=== PATIENT | female | born 1995 ===

== ENCOUNTER 2022-09-28 08:32 | Outpatient (OUT) | payer OTHER, SELFPAY ==
--- NOTE | 2022-09-28 | US_ITS ---
[address] [address] Patient Name: JEFF LANCE MRN: [id number] date: 1995 Sex: F Assigned Patient Location: US Current Patient Location: US Accession/Order Number: [id number] Exam Date: 09/28/2022 08:35 Report Date: 09/28/2022 17:27 At the request of: EMILIA PEREZ Procedure: US OB incomplete anatomy EXAM: US OB incomplete anatomy HISTORY: SUBVISUALIZED OUTFLOW TRACTS AND 3 VESSEL CORD COMPARISON: 08/20/2022 TECHNIQUE: Transabdominal FINDINGS: The umbilical arteries: 2 position: Breech presentation, longitudinal lie Heart rate: 144 bpm Normally observed anatomy: RVOT, LVOT, three-vessel cord IMPRESSION: Normal observed anatomy Electronically authenticated by: BRITTANY GO Date: 09/28/2022 17:27
== END 2022-09-28 08:33 ==
LOC: US 08:32
PROVIDERS: PCP Family Medicine; Visit Provider Obstetrics & Gynecology
DX: Z36.2 Encounter for other antenatal screening follow-up (principal)
CPT/HCPCS: 76815

== ENCOUNTER 2022-11-17 14:37 | Outpatient (OUT) | payer OTHER, SELFPAY ==
--- NOTE | 2022-11-17 14:40 | US_ITS ---
The [address] [address] Patient Name: JEFF LANCE MRN: [id number] date: 1995 Sex: F Assigned Patient Location: Current Patient Location: Accession/Order Number: [id number] Exam Date: 11/17/2022 14:41 Report Date: 11/17/2022 22:10 At the request of: EMILIA PEREZ Procedure: US OB growth EXAMINATION: US OB growth HISTORY: SIZE INCONSISTENT WITH DATES COMPARISON: No relevant comparison available. FINDINGS: Heart Rate: 140.0 bpm Number: 1.0 Position: CEPHALIC Amniotic Fluid Volume: 15.1 cm Maximum Vertical Pocket: 6.0 cm BIOMETRY: BPD: 8.6 cm cm; 34 weeks 5 days; 89% HC: 30.9 cmcm; 34 weeks 4 days; 53% AC: 30.2 cm cm; 34 weeks 1 days; 82% FL: 6.6 cm cm; 33 weeks 6 days; 61% EFW: 2362.0 grams; 77% FL/AC: 21.7 FL/BPD: 76.1 HC/AC: 1.0 GESTATIONAL AGE: Age by EDC: 33 weeks 0 days BAIRON by EDC: 01/05/2023 Age by US: 34 weeks 2 days BAIRON by US: 12/27/2022 US/US OB growth IMPRESSION: 1. Single live intrauterine with growth detailed above. Electronically authenticated by: SYBIL YIN Date: 11/17/2022 22:10
== END 2022-11-17 14:38 | disposition home or self-care (01) ==
LOC: US 14:37
PROVIDERS: PCP Family Medicine; Visit Provider Obstetrics & Gynecology
DX: O26.849 Uterine size-date discrepancy, unspecified trimester (principal); Z3A.00 Weeks of gestation of pregnancy not specified
CPT/HCPCS: 76816

== ENCOUNTER 2022-12-10 21:15 | Outpatient (REF) | payer OTHER, SELFPAY | END 2022-12-10 21:16 | disposition home or self-care (01) | LOC: LAB 21:15 | PROVIDERS: PCP Family Medicine; Visit Provider Obstetrics & Gynecology | DX: Z34.93 Encounter for supervision of normal pregnancy, unspecified, third trimester (principal) | CPT/HCPCS: 87081; 87150 ==

== ENCOUNTER 2023-01-06 19:40 | Inpatient (IN) | payer OTHER, SELFPAY ==
[2023-01-06] VITALS (8 sets, daily range): BP systolic 127–139; BP diastolic 74–79; PULSE 106–118; RESP 16; TEMP 36.1
--- NOTE | 2023-01-06 | US_ITS ---
[address] [address] Patient Name: JEFF LANCE MRN: [id number] date: 1995 Sex: F Assigned Patient Location: [facility] Current Patient Location: [facility] Accession/Order Number: [id number] Exam Date: 01/06/2023 18:18 Report Date: 01/07/2023 15:09 At the request of: EMILIA PEREZ Procedure: US OB BPP w non-stress EXAMINATION: US OB BPP w non-stress HISTORY: POST TERM O48.0 COMPARISON: No relevant comparison available. TECHNIQUE: Ultrasound biophysical profile was performed in the radiology department. BREATHING MOVEMENTS: 2.0 GROSS BODY MOVEMENTS: 2.0 TONE: 2.0 QUALITATIVE AMNIOTIC FLUID VOLUME: 0.0 PRESENTATION: CEPHALIC HEART RATE: 148.4 bpm bpm. AMNIOTIC FLUID VOLUME: 4.9 cm GESTATIONAL AGE: 40 weeks 1 days CONCLUSION: 1. Total biophysical profile score 6.0. 2. Oligohydramnios (4.9 cm; deepest pocket is 1.5 cm). Electronically authenticated by: SYBIL YIN Date: 01/07/2023 15:09
--- NOTE | 2023-01-06 19:13 | PC.NURSE ---
Call to Dr. Menard to report maternal and status. Orders received. Pt. will be updated on plan of care and support provided.
--- NOTE | 2023-01-06 19:35 | PC.NURSE ---
Care resumed by this RN. Plan of care discussed with patient, patient states understanding.
[2023-01-06 21:21] LABS: Amphetamine Screen Urine NEGATIVE (NEGATIVE); Barbiturates Screen Urine NEGATIVE (NEGATIVE); Benzodiazepines Screen Urine NEGATIVE (NEGATIVE); Buprenorphine Screen Urine NEGATIVE (NEGATIVE); Cannabinoid Screen Urine NEGATIVE (NEGATIVE); Cocaine Screen Urine NEGATIVE (NEGATIVE); Methadone Screen Urine NEGATIVE (NEGATIVE); Methamphetamines Screen Urine NEGATIVE (NEGATIVE); Opiate Screen Urine NEGATIVE (NEGATIVE); Oxycodone Screen Urine NEGATIVE (NEGATIVE); Phencyclidine Screen Urine NEGATIVE (NEGATIVE); Tricyclic Antidepressant Urine NEGATIVE (NEGATIVE)
[2023-01-06 21:41] LABS: Hematocrit 34.7 % (36.0-48.0); Hemoglobin 10.9 g/dL (12.0-16.0); Mean Corpuscular HGB Conc 31.4 g/dL (29.9-35.2); Mean Corpuscular Volume 79.6 fL (81.0-99.0); Mean Platelet Volume 11.3 fL (9.5-13.5); Platelet Count 363 10^3/uL (150-450); Red Blood Count 4.36 10^6/uL (4.20-5.40); Red Cell Distribution Width 15.5 % (11.0-15.0); White Blood Count 13.8 10^3/uL (4.0-11.0)
[2023-01-06] MEDS: 0.9 % SODIUM CHLORIDE 1,000 ML 125 ML IV (22:14)
[2023-01-06] MEDS: OXYTOCIN 10 UNIT in 0.9 % SODIUM CHLORIDE 500 ML 6.012 UNIT IV (22:17)
[2023-01-06] MEDS: CEFAZOLIN SODIUM/DEXTROSE,ISO 1 GM/50 ML IV.SOLN IV (22:18)
[2023-01-07] VITALS (55 sets, daily range): BP systolic 97–154; BP diastolic 50–83; PULSE 79–127; RESP 16–20; TEMP 36.2–37.3
[2023-01-07] MEDS: CEFAZOLIN SODIUM/DEXTROSE,ISO 1 GM/50 ML IV.SOLN IV ×3 (02:33→17:11)
[2023-01-07] MEDS: 0.9 % SODIUM CHLORIDE 1,000 ML 125 ML IV ×2 (04:58→10:46)
[2023-01-07] MEDS: OXYTOCIN/0.9 % SODIUM CHLORIDE 10 UNITS/500 ML PLAST..BAG 6 UNIT IV (11:05)
[2023-01-07] MEDS: FENTANYL CITRATE/PF 100 MCG/2 ML VIAL IV ×2 (12:15→12:30)
[2023-01-07] MEDS: ROPIVACAINE HCL/PF 400 MG/200 ML PREMIX 6 MG EPIDURAL (12:31)
--- NOTE | 2023-01-07 19:49 | PM.OBPRCVD ---
Procedure Intrapartal events: None Induction method: per pitocin protocol Delivery augmentation: rupture of membranes and pitocin Delivery monitor: external FHT and external uterine Route of delivery: Episiotomy Description: none Laceration description: periurethral - 1st degree Delivery repair: Vicryl Estimated blood loss (mL): 250 Anesthesia type: Epidural Disposition: floor Infant Delivery date: 01/07/23 Gender: male presentation: vertex Placental delivery description: Spontaneous cord description: 3 Vessels
[2023-01-07] MEDS: KETOROLAC TROMETHAMINE 30 MG/ML VIAL IVP (20:37)
--- NOTE | 2023-01-07 21:04 | PC.NURSE ---
Recovery Notes: 193- Patient refuses vital signs to be taken. Fundus firm and U/E, bleeding small. 1949- Patient refuses vital signs to be taken. Fundus firm and U/E, bleeding small. 2009- Blood pressure cuff applied with patient okay. Fundus firm and U/E, bleeding small. 2039- Bleeding small, fundus U/E and firm. 2054- Fundus firm and U/E, bleeding small.
[2023-01-08] MEDS: IBUPROFEN 600 MG TABLET PO ×4 (02:37→22:37)
[2023-01-08] MEDS: ACETAMINOPHEN 325 MG TABLET 650 MG PO (06:47)
[2023-01-08 06:51] LABS: Basophils Absolute Auto 0.1 10^3/uL (0.0-0.1); Basophils Percent Auto 0.3 % (0.2-2.0); Eosinophils Absolute Auto 0.2 10^3/uL (0.0-0.7); Eosinophils Percent Auto 1.1 % (0.9-7.0); Hematocrit 30.3 % (36.0-48.0); Hemoglobin 9.6 g/dL (12.0-16.0); Immature Granulocytes Abs Auto 0.12 10^3/uL (0.00-0.03); Immature Granulocytes Pct Auto 0.7 % (0.0-0.5); Lymphocytes Absolute Auto 3.3 10^3/uL (1.2-3.8); Lymphocytes Percent Auto 20.2 % (20.5-60.0); Mean Corpuscular HGB Conc 31.7 g/dL (29.9-35.2); Mean Corpuscular Hemoglobin 25.5 pg (26.7-34.0); Mean Corpuscular Volume 80.6 fL (81.0-99.0); Mean Platelet Volume 11.7 fL (9.5-13.5); Monocytes Absolute Auto 0.9 10^3/uL (0.3-0.8); Monocytes Percent Auto 5.7 % (1.7-12.0); Neutrophils Absolute Auto 11.6 10^3/uL (1.4-6.5); Platelet Count 300 10^3/uL (150-450); Red Blood Count 3.76 10^6/uL (4.20-5.40); Red Cell Distribution Width 15.8 % (11.0-15.0); White Blood Count 16.2 10^3/uL (4.0-11.0)
--- NOTE | 2023-01-08 07:22 | W.PC.ACHO ---
Registration Status: ADM IN Primary Language: Gambian Preferred Language: Gambian Active Medications Generic Name Dose Route Start Last Admin Trade Name Freq PRN Reason Stop Dose Admin Acetaminophen 650 mg 01/07/23 19:50 01/08/23 06:47 Acetaminophen 325 Mg Tablet PO 650 mg Q6H PRN Administration Mild Pain Al Hydroxide/Mg Hydroxide 2,400 mg 01/07/23 19:50 Magnesium Hydroxide 2,400 Mg/10 Ml Oral.Susp PO Q6H PRN Dyspepsia Benzocaine/Menthol 1 applic 01/07/23 19:50 Benzocaine/Menthol 85 Gram [place] Bottle TOPICAL Q2H PRN Pain Carboprost Tromethamine 250 mcg 01/06/23 19:28 Carboprost Tromethamine 250 Mcg/Ml 1 Ml Vial IM 01/08/23 19:28 Q15M PRN Bleeding Diphtheria/Pertussis/Tetanus Vacc 0.5 ml 01/09/23 09:00 Adacel Diph,Pertuss(Acell),Tet Vac/Pf 0.5 Ml Adult Syringe IM 01/09/23 09:01 .ONCE ONE Docusate Sodium 100 mg 01/08/23 09:00 Docusate Sodium 100 Mg Capsule PO BID BERNICE Sodium Chloride 1,000 mls @ 125 mls/hr 01/06/23 19:30 01/07/23 20:10 Sodium Chloride 0.9% 1,000 Ml IV Infused .Q8H BERNICE Infusion Oxytocin 10 unit/ Sodium 501 mls @ 6.012 mls/hr 01/06/23 22:00 01/07/23 10:09 Chloride IV Infused Q24H BERNICE Infusion 2 MILLIUNIT/MIN Sodium Chloride 1,000 mls @ 125 mls/hr 01/06/23 19:30 Sodium Chloride 0.9% 1,000 Ml IV .Q8H BERNICE Cefazolin Sodium/Dextrose 1 gm in 50 mls @ 100 mls/hr 01/06/23 20:30 01/07/23 23:57 Ancef IV Not Given Q6H BERNICE Oxytocin/Sodium Chloride 10 units in 500 mls @ 6 mls/hr 01/07/23 11:00 01/07/23 20:12 Pitocin 10 Unit/500 Ml-Ns IV Infused CONT BERNICE Infusion Protocol 2 MILLIUNIT/MIN Ropivacaine/Sodium Chloride 400 mg in 200 mls @ 6 mls/hr 01/07/23 11:30 01/07/23 12:31 Naropin 0.2% 400 Mg/200 Ml Bag EPIDURAL 6 mls/hr Q24H BERNICE Administration Ibuprofen 600 mg 01/07/23 22:00 01/08/23 02:37 Ibuprofen 600 Mg Tablet PO 600 mg Q6H PRN Administration Moderate Pain Lidocaine 5 ml 01/06/23 19:28 Lidocaine Viscous 2% 15 Ml Solution TOPICAL ONCE PRN Pain Lidocaine 1 ml 01/06/23 19:28 Lidocaine Hcl 1% 200 Mg/20 Ml Mdv INJ ONCE PRN Pain Measles/Mumps/Rubella Vaccine Live 0.5 ml 01/09/23 09:00 Measles,Mumps,Rubella Vacc/Pf 0.5 Ml Vial SQ 01/09/23 09:01 .ONCE ONE Methylergonovine Maleate 0.2 mg 01/06/23 19:28 Methylergonovine Maleate 0.2 Mg/Ml Ampule IM 01/08/23 19:28 ONCE PRN Uterine Contractility/Contract Methylergonovine Maleate 0.2 mg 01/06/23 19:28 Methylergonovine Maleate 0.2 Mg Tablet PO 01/08/23 19:28 Q4H PRN Uterine Contractility/Contract Misoprostol 600 mcg 01/06/23 19:28 Misoprostol 100 Mcg Tablet PO 01/08/23 19:28 ONCE PRN Uterine Bleeding Misoprostol 800 mcg 01/06/23 19:28 Misoprostol 100 Mcg Tablet SL 01/08/23 19:28 ONCE PRN Uterine Bleeding Misoprostol 1,000 mcg 01/06/23 19:28 Misoprostol 100 Mcg Tablet VA 01/08/23 19:28 ONCE PRN Uterine Bleeding Ondansetron HCl 4 mg 01/06/23 19:28 Ondansetron Pf 4 Mg/2 Ml Vial IV Q6H PRN Nausea And Vomiting Ondansetron HCl 4 mg 01/06/23 19:28 Ondansetron 4 Mg Rapdis Tablet SL Q6H PRN Nausea And Vomiting Oxytocin 10 unit 01/06/23 19:28 Oxytocin 10 Unit/Ml Vial IM 01/08/23 19:28 ONCE PRN Bleeding Senna 17.2 mg 01/07/23 20:00 Sennosides 8.6 Mg Tablet PO QHS PRN Constipation Simethicone 80 mg 01/07/23 19:50 Simethicone 80 Mg Tab.Chew PO QID PRN Abdominal Distention Temazepam 15 mg 01/07/23 19:50 Temazepam 15 Mg Capsule PO QHS PRN Sleep Witch Valery/Glycerin 1 pad 01/07/23 19:50 Glycerin/Witch Valery Pads TOPICAL Q2H PRN Pain Diet Category Date Time Status Regular Consistency Diet Diet 01/07/23 Dinner Active Respiratory Oxygen Delivery Method Room Air Oxygen Delivery Method Room Air Cardiology Heart Sounds Strong,Regular Bowels Bowel Pattern No Bowel Movement Renal Bladder Pattern Continent
--- NOTE | 2023-01-08 07:41 | P.OBPN_ITS ---
OB - PN: Subj Subjective Patient comments: no complaints and pain well controlled [place] status: doing well Exam Constitutional Vital Signs, click to edit/add: Last Vital Signs Temp 99.2 F 01/07/23 22:30 Pulse 117 H 01/07/23 22:10 Resp 20 01/07/23 22:30 BP 131/61 01/07/23 22:10 O2 Del Method Room Air 01/07/23 22:30 Documenting provider has reviewed patient's vital signs: yes Common normals: no apparent distress Respiratory Common normals: clear to auscultation bilaterally Cardio Common normals: regular rate and regular rhythm GI Common normals: Normal to inspection, nondistended, normoactive bowel sounds present Extremity Common normals: no calf tenderness Results Labs Labs: Short CBC 01/08/23 Range/Units 06:37 WBC 16.2 H (4.0-11.0) 10^3/uL Hgb 9.6 L (12.0-16.0) g/dL Hct 30.3 L (36.0-48.0) % Plt Count 300 (150-450) 10^3/uL OB - PN: A/P Plan - Vaginal Delivery day: 1 Plan: routine care Time Spent with Patient Time: Total time spent is greater than 50% in coordination of care (as documented) at patient's floor/unit and/or counseling patient: Total time spent with greater than 50% in coordination of care (as documented) at patient's floor/unit and/or counseling patient: less than 15 minutes
[2023-01-08 10:14] VITALS: TEMP 36.1
[2023-01-08 10:15] VITALS: BP 142/95; PULSE 120; RESP 16; TEMP 36.6
[2023-01-08 16:20] VITALS: BP 120/70; PULSE 92; RESP 16; TEMP 37.1
[2023-01-08 23:05] VITALS: TEMP 36.3
[2023-01-08 23:06] VITALS: BP 129/61; PULSE 92
[2023-01-08 23:08] VITALS: RESP 16
--- NOTE | 2023-01-09 08:49 | PM.OBDS ---
DS: Providers Provider Date of admission: 01/06/23 19:40 Primary care physician: FRANCOIS ARNETT Admitting clinician: John Menard Attending physician on admission: John Menard Attending physician on discharge: Agueda Coley Discharging clinician: Agueda Coley Anticipated date of discharge: 01/09/23 DS: Diagnosis Discharge Diagnosis (1) Encounter for assessment: Assessment and plan: Encounter care - doing well Plan Home, f/u with OB in 6 weeks OB - DS: Summary Hospital Course Hospital Course: normal course Time spent discussing smoking cessation with patient: 3 to 10 minutes Complications complications: none Delivery method: spontaneous vaginal delivery Gender: male Discharge plan: home Status at Discharge Functional status at discharge: independent ambulation Overall status at discharge: patient is back to baseline Time Spent with Patient Time attestation: Total time spent providing and/or coordinating discharge services: Time spent: less than 30 minutes Exam Narrative Exam Narrative: no complaints except tailbone mild pain Constitutional Vital Signs, click to edit/add: Last Vital Signs Temp 97.3 F L 01/08/23 23:05 Pulse 92 H 01/08/23 23:06 Resp 16 01/08/23 23:08 BP 129/61 01/08/23 23:06 O2 Del Method Room Air 01/07/23 22:30 Other: Fundus firm below Umbilicus minimal bleeding Discharge Plan Discharge Disposition: Home, Self-Care Condition: Good Discharge Medications: Discontinued PNV [id number] fumarate-FA [ Multivitamins] 28 mg iron- 800 mcg tablet 1 tab PO DAILY Activity: increase activity as tolerated Activity Detail: nothing per vagina x 6 weeks Diet: advance to your usual diet 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
--- NOTE | 2023-01-09 09:08 | PM.OBPN ---
OB - PN: Subj Subjective Patient comments: pain well controlled [place] status: doing well Exam Constitutional Vital Signs, click to edit/add: Last Vital Signs Temp 97.3 F L 01/08/23 23:05 Pulse 92 H 01/08/23 23:06 Resp 16 01/08/23 23:08 BP 129/61 01/08/23 23:06 O2 Del Method Room Air 01/07/23 22:30 Common normals: no apparent distress General appearance: comfortable Other: Uterus firm below U minimal bleeding OB - PN: A/P Assessment and Plan (1) Encounter for assessment: Assessment and Plan: encounter care - doing well Plan Home Plan - Vaginal Delivery Plan: routine care, discharge home and follow up 6 weeks Time Spent with Patient Time: Total time spent is greater than 50% in coordination of care (as documented) at patient's floor/unit and/or counseling patient: Total time spent with greater than 50% in coordination of care (as documented) at patient's floor/unit and/or counseling patient: less than 15 minutes
[2023-01-09] MEDS: IBUPROFEN 600 MG TABLET PO ×2 (09:36→19:38)
[2023-01-09 09:42] VITALS: BP 140/71; PULSE 114
[2023-01-09 09:44] VITALS: RESP 16
[2023-01-09 09:45] VITALS: TEMP 37.1
[2023-01-09 16:25] VITALS: BP 110/56; PULSE 93; TEMP 36.6
[2023-01-09 16:45] VITALS: RESP 18
--- NOTE | 2023-01-09 19:02 | W.PC.ACHO ---
Registration Status: ADM IN Primary Language: Bhutanese Preferred Language: Bhutanese Active Medications Generic Name Dose Route Start Last Admin Trade Name Freq PRN Reason Stop Dose Admin Acetaminophen 650 mg 01/07/23 19:50 01/08/23 06:47 Acetaminophen 325 Mg Tablet PO 650 mg Q6H PRN Administration Mild Pain Al Hydroxide/Mg Hydroxide 2,400 mg 01/07/23 19:50 Magnesium Hydroxide 2,400 Mg/10 Ml Oral.Susp PO Q6H PRN Dyspepsia Benzocaine/Menthol 1 applic 01/07/23 19:50 Benzocaine/Menthol 85 Gram [place] Bottle TOPICAL Q2H PRN Pain Docusate Sodium 100 mg 01/08/23 09:00 01/09/23 11:19 Docusate Sodium 100 Mg Capsule PO Not Given BID BERNICE Sodium Chloride 1,000 mls @ 125 mls/hr 01/06/23 19:30 Sodium Chloride 0.9% 1,000 Ml IV .Q8H BERNICE Ibuprofen 600 mg 01/07/23 22:00 01/09/23 09:36 Ibuprofen 600 Mg Tablet PO 600 mg Q6H PRN Administration Moderate Pain Ondansetron HCl 4 mg 01/06/23 19:28 Ondansetron Pf 4 Mg/2 Ml Vial IV Q6H PRN Nausea And Vomiting Ondansetron HCl 4 mg 01/06/23 19:28 Ondansetron 4 Mg Rapdis Tablet SL Q6H PRN Nausea And Vomiting Senna 17.2 mg 01/07/23 20:00 Sennosides 8.6 Mg Tablet PO QHS PRN Constipation Simethicone 80 mg 01/07/23 19:50 Simethicone 80 Mg Tab.Chew PO QID PRN Abdominal Distention Temazepam 15 mg 01/07/23 19:50 Temazepam 15 Mg Capsule PO QHS PRN Sleep Witch Valery/Glycerin 1 pad 01/07/23 19:50 Glycerin/Witch Valery Pads TOPICAL Q2H PRN Pain Respiratory Oxygen Delivery Method Room Air Cardiology Heart Sounds Regular Bowels Date of Last Bowel Movement 01/08/23 Renal Bladder Pattern Continent
== END 2023-01-09 19:55 | disposition home or self-care (01) | DRG 560 ==
LOC: US 19:49 → FBC 19:49
PROVIDERS: Admitting Provider Obstetrics & Gynecology; PCP Family Medicine; Visit Provider Obstetrics & Gynecology
DX: O48.0 Post-term pregnancy (principal); O99.824 Streptococcus B carrier state complicating childbirth; O71.82 Other specified trauma to perineum and vulva; Z3A.40 40 weeks gestation of pregnancy; Z37.0 Single live birth; Z88.0 Allergy status to penicillin
CPT/HCPCS: 36415; 51702; 59050; 59410; 76818; 80307; 85025; 85027; 86850; 86900; 86901; 96365; 96366; 96368; 96375; 96376